=== PATIENT | male | born 1945 | race Caucasian/White ===

== ENCOUNTER → 2018-12-11 10:15 | Outpatient (CLI) | payer OTHER ==
--- NOTE | 2018-12-11 16:39 | EC ---
PATIENT:USHA LIPSCOMB DATE OF SERVICE: 12/11/18 SEX: M MEDICAL RECORD: [id number] DATE OF : 43 LOCATION:[facility] AGE OF PATIENT: 73 ADMISSION DATE: 12/11/18 REFERRING PHYSICIAN: INTERPRETING PHYSICIAN: DEANDRE MELTON MD ECHOCARDIOGRAM REPORT ECHO CHARGES 4 ECHO COMPLETE Date: 12/11/18 CLINICAL DIAGNOSIS: CAD ECHOCARDIOGRAPHIC MEASUREMENTS (adult normal given) AC root (d.<3.7cm) 3.6 cm LV Septum d (<1.2 cm> 0.8 cm Valve Excursion 2.3 cm LV Septum (systole) 1.5 cm Left Atria (s.<4.0cm> 3.5 cm LVPW d(<1.2cm) 1.2 cm RV (d.<2.3cm) 3.4 cm LVPW (sytole) 1.8 cm LV diastole(<5.6CM) 4.9 cm MV E-F(>70mm/sec) cm LV systole 1.9 cm LVOT Diameter 2.2 cm MV exc.(>10mm) cm Est.ejection fraction (50-75%) % DOPPLER: LVIT cm/sec A 52.0 cm/sec E 59.0 cm/sec LA cm/sec RVSP 28.1 mmHg LVOT 101 cm/sec AOP1/2T m/s Asc. Ao 104 cm/sec RVOT 38.0 cm/sec RA cm/sec PA 75.0 cm/sec AV Gradient Peak 4.4 mmHg AV Mean 2.4 mmHg AV Area 3.2 cm MV Gradient Peak 2.8 mmHg MV Mean 0.92 mmHg MV Area cm COMMENTS: [employer] Program Chair: Joi TOR[employer] Operator: 1 Dr. Melton TAPE# PACS Pericardial Effusion N DATE OF SERVICE: 12/11/2018 FINDINGS: 1. Left ventricular chamber size is within normal limits. Left ventricular systolic function is normal. Overall ejection fraction is estimated at 55% to 60%. 2. Left atrium, right atrium, and right ventricle chamber sizes are within normal limit. 3. Valvular structures have normal structure and motion. 4. Doppler interrogation reveals mild aortic insufficiency, mild mitral ECHOCARDIOGRAM REPORT [id number] USHA LIPSCOMB regurgitation, and mild tricuspid regurgitation. No other valvular insufficiency or stenosis. 5. No evidence of pericardial effusion or left ventricular thrombus. TRANSINT:[id number] Voice Confirmation ID: [id number] DOCUMENT ID: [id number] DEANDRE MELTON MD at 1639 CC: [id number] DICTATION DATE: 12/11/18 1129 INFORMATION CLERK CASHIER: 12/11/18 1411 [facility] [address] [id number]
== END | disposition home or self-care (01) ==
LOC: D.ECHO 10:15
DX: I25.10 Atherosclerotic heart disease of native coronary artery without angina pectoris (principal)